=== PATIENT | male | born 1995 | race Two or more races ===

== ENCOUNTER 2020-12-31 16:05 | Emergency (ER) | payer MEDICAID ==
[~2020-12-31] VITALS: Ht 167.6 cm; Wt 61.4 kg
[2020-12-31 16:11] VITALS: BP 140/83
--- NOTE | 2020-12-31 16:28 | NUR ---
curing Pt. assesment and interview he became upset and left with out being seen. RANDALL Gilman informed.
== END 2020-12-31 16:30 | disposition left against medical advice (07) ==
LOC: ER 16:06
DX: R07.89 Other chest pain (principal); Z53.21 Procedure and treatment not carried out due to patient leaving prior to being seen by health care provider

== ENCOUNTER 2021-09-28 05:37 | Emergency (ER) | payer MEDICAID ==
[~2021-09-28] VITALS: Ht 165.1 cm; Wt 56.8 kg
[2021-09-28 05:56] VITALS: BP 104/67
== END 2021-09-28 07:35 | disposition left against medical advice (07) ==
LOC: ER 05:37
DX: R11.10 Vomiting, unspecified (principal); Z53.21 Procedure and treatment not carried out due to patient leaving prior to being seen by health care provider

== ENCOUNTER 2022-11-02 05:53 | Emergency (ER) | payer MEDICAID ==
[~2022-11-02] VITALS: Ht 167.6 cm; Wt 61.4 kg
[2022-11-02 06:14] VITALS: BP 138/84
== END 2022-11-02 11:20 | disposition left against medical advice (07) ==
LOC: ER 05:54
DX: G47.00 Insomnia, unspecified (principal); Z53.21 Procedure and treatment not carried out due to patient leaving prior to being seen by health care provider

== ENCOUNTER 2022-12-18 12:49 | Emergency (ER) | payer MEDICAID ==
[~2022-12-18] VITALS: Ht 165.1 cm; Wt 63.0 kg
[2022-12-18 12:51] VITALS: BP 142/110
[2022-12-18] MEDS ORDERED: amox tr/potassium clavulanate 875/125mg TAB PO ONE (14:05)
[2022-12-18] MEDS ORDERED: ibuprofen tablet 400 MG TABLET PO ONE (14:05)
[2022-12-18] MEDS ORDERED: AMOX-117 PO (14:06)
[2022-12-18] MEDS ORDERED: IBUP-1984 PO (14:06)
== END 2022-12-18 14:20 | disposition home or self-care (01) ==
LOC: ER 12:49
DX: L03.114 Cellulitis of left upper limb (principal); M79.642 Pain in left hand; F15.20 Other stimulant dependence, uncomplicated; F12.90 Cannabis use, unspecified, uncomplicated
CPT/HCPCS: 73130; 99283